=== PATIENT | female | born 1970 | race Caucasian/White ===

== ENCOUNTER 2021-09-26 18:12 | Emergency (ER) | payer OTHER ==
[2021-09-26 18:35] VITALS: BP 115/77; PULSE 59; TEMP 97.5; BMI 20.1
== END 2021-09-26 18:59 | disposition home or self-care (01) ==
LOC: EROSA 18:12 → FER 18:12 → EROSA 18:59
DX: S60.442A External constriction of right middle finger, initial encounter (principal); W49.04XA Ring or other jewelry causing external constriction, initial encounter
CPT/HCPCS: 99281-25